=== PATIENT | female | born 1995 | race Caucasian/White ===

== ENCOUNTER 2022-03-28 13:59 | Emergency (ER) | payer OTHER ==
[~2022-03-28] VITALS: Ht 170.2 cm; Wt 64.4 kg
[2022-03-28 14:25] VITALS: BP_SYST 127
--- NOTE | 2022-03-28 16:45 | NUR ---
Patient to ER bed 2 to gown for evaluation. Side rails up. Report given to Amanda TURNER.
--- NOTE | 2022-03-28 17:00 | NUR ---
ER at bedside examining patient.
[2022-03-28] MEDS ORDERED: NACL 0.9% 1,000 ML IV ONE ×2 (17:30→19:15)
[2022-03-28 17:36] LABS: BASOPHILS # (AUTO) 0.1 K/uL (0.0-0.2); BASOPHILS % (AUTO) 0.6 % (0.0-2.0); HEMATOCRIT 40.9 % (36-48); HEMOGLOBIN 13.7 g/dL (12.0-16.0); LYMPHOCYTES # (AUTO) 0.1 K/uL (1.0-5.5); MEAN CORPUSCULAR HEMOGLOBIN 32 pg (27-31); MEAN CORPUSCULAR HGB CONC 34 % (32-36); MEAN CORPUSCULAR VOLUME 96 fL (79.0-98.0); MONOCYTES % (AUTO) 8.1 % (1.7-9.3); NEUTROPHILS % (AUTO) 90.3 % (40.0-70.0); PLATELET COUNT (AUTO) 201 K/uL (130-430); RED BLOOD CELL COUNT(AUTO) 4.28 MIL/uL (4.2-6.2); RED CELL DISTRIBUTION WIDTH 13.1 % (9.0-15.0); WHITE BLOOD COUNT (AUTO) 12.1 K/uL (4.8-10.8)
[2022-03-28 17:44] LABS: CALCIUM 8.2 mg/dL (8.4-11.0); CREATININE 0.71 mg/dL (0.55-1.30); POTASSIUM 3.9 mmol/L (3.5-5.1)
[2022-03-28 17:48] LABS: ALBUMIN 3.3 g/dL (3.4-4.8); TOTAL BILIRUBIN 1.2 mg/dL (0.0-1.0)
--- NOTE | 2022-03-28 17:52 | NUR ---
# 22 gauge angiocath placed to left AC. Use of asceptic technique. Opsite placed over site. Blood return noted. Flushed with 10 cc of normal saline. No evidence of infiltration noted. Patient tolerated well.
--- NOTE | 2022-03-28 18:01 | NUR ---
Urine collected and sent to lab.
[2022-03-28 18:11] LABS: BILIRUBIN,URINE NEGATIVE (NEGATIVE); BLOOD, URINE NEGATIVE (NEGATIVE); CLARITY/URINE CLEAR (CLEAR); GLUCOSE,URINE NEGATIVE (NEGATIVE); KETONES,URINE 1+ (NEGATIVE); LEUKOCYTE ESTERASE ,URINE NEGATIVE (NEGATIVE); NITRITE, URINE NEGATIVE (NEGATIVE); PH,URINE 6.5 (5.0-8.0); PROTEIN URINE NEGATIVE (NEGATIVE); UROBILINOGEN,URINE 0.2 (0.2-1.0)
[2022-03-28 18:17] LABS: COLOR,URINE AMBER (YELLOW)
[2022-03-28] MEDS ORDERED: ACETAMINOPHEN 500 MG TABLET PO ONE (19:15)
[2022-03-28] MEDS ORDERED: PIPERACILLIN/TAZO 3.375 GM in NS 50 ML IV ONE (19:15)
--- NOTE | 2022-03-28 19:17 | NUR ---
care endorsed to YUE hernandez
--- NOTE | 2022-03-28 19:30 | NUR ---
yue kendrick REPORT FROM YUE PRINCE. PT FEVER AND CONSTIPATION X 5DAYS. C/O LOWER BACK NOW, LEVAL 7 08/25/09 WITH NAUSEA. CONTINUED MONITORING
[2022-03-28] MEDS ORDERED: PIPERACILLIN/TAZOBACTAM 3.375 GM/VIAL (ZOSYN) IV ONE (19:49)
--- NOTE | 2022-03-28 22:18 | NUR ---
PATIENT OFF UNIT TO ULTRASOUND VIA WHEELCHAIR ACCOMPANIED BY BLANCA BRUMFIELD TECH
--- NOTE | 2022-03-28 22:25 | NUR ---
PT IN U/S WITH TECH. GIRLFRIEND AT BEDSIDE/ EX- ROOMATE
--- NOTE | 2022-03-28 22:48 | NUR ---
PT RETURNED FROM U/S VIA W/C WITH TECH. "FEELS BTTER" STATES "PRESSURE IN LOWER BACK" NO C/O PAIN AT THIS TIME. TEMP-98.7 TEMPORAL. CONTINUED OBSERVATION
[2022-03-28] MEDS ORDERED: MAGNESIUM CITRATE 300 ML ORAL SOLUTION PO ONE (23:45)
[2022-03-29] MEDS ORDERED: MORPHINE 4 MG INJ. 4 MG/ML VIAL IVP ONE (00:30)
[2022-03-29 00:55] LABS: BILIRUBIN,URINE NEGATIVE (NEGATIVE); BLOOD, URINE NEGATIVE (NEGATIVE); CLARITY/URINE CLEAR (CLEAR); COLOR,URINE YELLOW (YELLOW); GLUCOSE,URINE NEGATIVE (NEGATIVE); KETONES,URINE 1+ (NEGATIVE); LEUKOCYTE ESTERASE ,URINE NEGATIVE (NEGATIVE); NITRITE, URINE NEGATIVE (NEGATIVE); PROTEIN URINE NEGATIVE (NEGATIVE); UROBILINOGEN,URINE 0.2 (0.2-1.0)
[2022-03-29] MEDS ORDERED: ONDANSETRON HCL 4 MG/2 ML VIAL IVP ONE ×2 (01:15)
--- NOTE | 2022-03-29 01:17 | NUR ---
PT C/O LOWER BACK PAIN, LEVAL 8/10 WITH NAUSEA. MEDICATED PER ER MD ORDERS. CONTINUED MONITORING. PT READY FOR CT OF ABD/PELVIS. CONSENT SIGNED AND GIVEN TO BUSINESS INFORMATION CONSULTANT AT BEDSIDE
[2022-03-29] MEDS ORDERED: iohexoL 240 mgI/mL, 50 ML INFUS..BTL IV ONE (01:20)
--- NOTE | 2022-03-29 01:33 | NUR ---
TO CT SCAN VIA [facility] WITH TECH
--- NOTE | 2022-03-29 02:25 | NUR ---
UP AMB TO BATHROOM FOR BM RELIEF. NO RELIEF OF CONSTIPATION. "LITTLE BIT OF LIQUID STOOL/ PATIENT. CONTINUED MONITORING.. PAIN LEVAL 01/31
--- NOTE | 2022-03-29 04:41 | NUR ---
PT UP AMB TO BR. X3 LIQUID STOOLS. PT STATES, " NO RELIEF OF CONSTIPATION" IMMANUEL BERNSTEIN 3.5.CONTINUED MONITORING. VSS
[2022-03-29] MEDS ORDERED: PEPTO PO (05:35)
[2022-03-29] MEDS ORDERED: HYDR-3917 PO (05:35)
[2022-03-29] MEDS ORDERED: ONDA-8 TL (05:35)
[2022-03-29 06:49] VITALS: BP_SYST 114
--- NOTE | 2022-03-29 06:51 | NUR ---
CHIDI, RN PT STABLE FOR D/C TO HOME WITH FRIEND. IV D/C'D WITH CATH INTACT AND PRESSURE DRESSING APPLIED. PT VERBALIZES UNDERSTANDING AND WILL F/U WITH [facility] ON THURSDAY.APPLE JUICE AND APPLE SAUCE GIVEN FOR NUTRIONAL SUPPLEMENT. NO C/O NAUSEA AT THIS TIME. TO LOBBY AMB WITH ALL PAPERWORK IN HAND TO WAIT FOR FRIEND
== END 2022-03-29 06:51 | disposition home or self-care (01) ==
LOC: SED 13:59
DX: E86.0 Dehydration (principal); K59.00 Constipation, unspecified; R10.30 Lower abdominal pain, unspecified; R11.2 Nausea with vomiting, unspecified; Z79.899 Other long term (current) drug therapy
CPT/HCPCS: 99285; 74176; 76830; 76857; 80053; 84702; 85025; 87040; 36415; 76376 ×2; 83605; 81003; 74177; J2543; Q9966; J2405; J2270